=== PATIENT | female | born 1945 | race Hispanic/Latino ===

== ENCOUNTER 2019-05-17 12:47 | Emergency (ER) | payer OTHER, MEDICARE ==
--- OUTSIDE RECORDS SUMMARY | 2019-05-17 12:49 | XMS REPORT ---
:1945 [facility] Address [address] Jessica [address] [place] [id number] Care Team Providers Name Role Phone Unavailable Unavailable Unavailable Problems This patient has no known problems. Allergies, Adverse Reactions, Alerts This patient has no known allergies or adverse reactions. Medications This patient has no known medications.
--- OUTSIDE RECORDS SUMMARY | 2019-05-17 12:50 | XMS REPORT | Summary of Care ---
:1945 Author Organization [facility] Address [address] [place] [id number] Care Team Providers Name Role Phone Miracle Erickson Primary Care Provider Reason for Visit Auth/Cert Status Reason Specialty Diagnoses / Procedures Referred By Contact Referred To Contact Surgery Diagnoses Personal history of colonic polyps personal history of adenomatous colon polyps Adc Pre/Pacu/Post Procedures OK COLONOSCOPY W/BIOPSY SINGLE/MULTIPLE COLONOSCOPY [address] [facility] [place] [address] Encounter Details Date Type Department Care Team Description 02/07/2019 Hospital Encounter [facility] Amaury Kc MD [address] [facility] [address] [facility] [place] [address] [id number] [place] [id number] Allergies Active Allergy Reactions Severity Noted Date Comments Dye Unknown - See comments 02/01/2019 Iodine Unknown - See comments 02/01/2019 documented as of this encounter (statuses as of 02/07/2019) Medications Medication Sig Dispensed Refills Start Date End Date Status ALPRAZolam 0.25 mg Take 0.25 mg 0 Active tablet by mouth daily. ferrous sulfate 325 Take 325 mg 0 Active mg (65 mg iron) EC by mouth tablet daily. magnesium oxide 400 Take 400 mg 0 Active mg magnesium by mouth. capsule omeprazole 20 mg Take 20 mg by 0 Active capsule mouth daily. pravastatin 10 mg Take 10 mg by 0 Active tablet mouth at bedtime. primidone 50 mg Take 50 mg by 0 Active tablet mouth before meals and at bedtime. rOPINIRole 0.25 mg Take 0.25 mg 0 Active tablet by mouth 3 (three) times daily. tramadol-acetaminop Take 1 tablet 0 Active hen 37.5-325 mg per by mouth tablet every 6 (six) hours as needed for Pain. rivaroxaban Take 20 mg by 0 Active (XARELTO) 20 mg mouth daily. tablet metoprolol Take 50 mg by 0 12/28/2018 Active succinate XL 50 mg mouth 2 (two) 24 hr tablet times daily. METOPROLOL Take 50 mg by 0 02/01/2019 Discontinued SUCCINATE ORAL mouth 2 (two) times daily. documented as of this encounter (statuses as of 02/07/2019) Active Problems No known active problemsdocumented as of this encounter (statuses as of 2018) Social History Tobacco Use Types Packs/Day Years Used Date Never Smoker Smokeless Tobacco: Never Used Alcohol Use Drinks/Week oz/Week Comments Yes 2 Cans of beer 1.2 twice a week Alcohol Habits Answer Date Recorded How often do you have a drink containing alcohol? Monthly or less 02/01/2019 How many drinks containing alcohol do you have on a 1 or 2 02/01/2019 typical day when you are drinking? How often do you have six or more drinks on one Not asked occasion? Sex Assigned at Date Recorded Not on file Job Start Date Occupation Industry Not on file Not on file Not on file Travel History Travel Start Travel End No recent travel history available. documented as of this encounter Last Filed Vital Signs Vital Sign Reading Time Taken Comments Blood Pressure 131/57 02/07/2019 9:21 AM CDT Pulse 69 02/07/2019 9:15 AM CDT Temperature 36.7 C (98 F) 02/07/2019 9:14 AM CDT Respiratory Rate 20 02/07/2019 9:15 AM CDT Oxygen Saturation 97% 02/07/2019 9:21 AM CDT Inhaled Oxygen Concentration - - Weight 72.6 kg (160 lb) 02/01/2019 2:00 PM CDT Height 157.5 cm (5' 2") 02/01/2019 2:00 PM CDT Body Mass Index 29.26 02/01/2019 2:00 PM CDT documented in this encounter Discharge Instructions Ale Pulido RN - 02/07/2019 Patient Discharge Instructions Discharge date: 02/07/2019 Procedure(s): Procedure(s): COLONOSCOPY No discharge procedures on file. Follow instructions as indicated below: 1. The medication that was used will be acting in your system for the next 24 hours, so you might feel a little drowsy, with impaired judgment and or motor function. This feeling should go wear off. Because the medication is still in your system for the next 24 hours you SHOULD NOT: Drive a car, operate machinery or power tool. Drink any alcohol beverages (including beer or wine). Make any important decisions or sign any legal documents. 2. You should rest the remainder of the day and not engage in any physical activity. Move slowly today. After lying down, sit on the edge of the bed for a moment before standing. YOU ARE RESPONSIBLEFOR HAVING SOMEONE AT HOME WITH YOU DURING THE AFTERNOON AND NIGHT IMMEDIATELY FOLLOWING YOUR SURGERY. Patient should cough and deep breathe every 2-4 hours while awake to avoid respiratory complications. 4. Lifting: "No medical restrictions 5. Weight: In general, sudden weight gains or losses should be reported to your provider. Cardiac patients should weigh daily and notify their provider for a weight gain of 3 pounds per day or 5 pounds per week. 6. Tobacco Avoidance: Follow recommendations below 7. Because the medications used could procedure some residual nausea and vomiting after you go home,you should eat lightly today, starting with clear liquids (broth, soft drinks, apple juice, jello) and toast or crackers, progressing to bland solid foods and then to your normal diet as tolerated, unless otherwise stated by your surgeon. If you get sick, wait a couple of hours and then begin to eat. After 24 hours the nausea should be gone. 8. You may experience some pain and your physician will advise you on what to take for discomfort. This should be taken as directed. If the pain is not relieved, contact your physician. You may alsohave a sore throat from the airway that was in place. You may uses lozenges, throat spray (such as Chloraseptic), or warm salt water gargles for symptomatic relief. 9. If you feel warm, take your temperature. If it is 101 degrees or above call your physician. 10. If you are unable to urinate within five hours after your procedure, call your physician. 11. The type of surgery performed will determine how much bleeding (if any) to expect. Normally, some spotting might occur. If your dressing pad becomes saturated, notify your physician. Elevate surgical site, if applicable, to reduced swelling and pain. 12. Wound/dressing care: none Tips on preventing a surgical site infection.. Dont smoke. It is best to quit at least 30 days before surgery, but quitting after surgery is also helpful. If you are diabetic, keep your blood sugar well controlled. WASH YOUR HANDS. Keep your wound clean and remember to wash your hands before and after contact with the area. All health care workers should also wash their hands or use an alcohol based hand rub prior to examining you. If antibiotics are prescribed, take them as directed. Finish the entire course of antibiotics. Call your doctor if you have signs of infection: ? Increased tenderness at the surgical site ? Red streaks or increased redness of the area ? Bad-smelling discharge from the incision ? Fever of 101F or higher ? General tired feeling that doesnt improve 13. Other discharge instructions: {DC IP DISCHARGE INSTRUCTIONS OTHER:35374} 14. Special Instructions: COLONOSCOPY DO NOT DRIVE or operate machinery the rest of the day. Mild abdominal discomfort may result from the procedure, but this should disappear within several hours. Notify your physician/nurse if you have persistent pain for more than 6 hours, tenderness or abdominal distention. Belching or passing gas per rectum frequently occurs during the first few hours after the examination. Walking will often help relieve distension or gas pains. Notify you physician/nurse if your heart rate becomes unusually rapid, if you experience, shortness of breath, dizziness, fever greater than 101, or if you cough or vomit blood or experience chest painor have any concerns at all. You may have minor bleeding. If this continues for more than 24 hours or increases in intensity, notify your physician/nurse. Tenderness may occur in the vein where medication was given. Notify your physician/ nurse should fever, swelling redness of the arm/hand, or pain in the armpit occur. Many patients feel quite tired following these procedures and need to rest and recuperate for several hours. Continue to take all medications as prescribed until your follow up appointment. Ask nurse for assistance in ambulating. If you cannot reach your physician for problems go to the nearest emergency center. Take Home Medications These are medications ordered for you by your healthcare provider. Do not take any other medications or supplements unless advised by your healthcare provider. Current Discharge Medication List STOP taking these medications ALPRAZolam 0.25 mg tablet Comments: Reason for Stopping: ferrous sulfate 325 mg (65 mg iron) EC tablet Comments: Reason for Stopping: magnesium oxide 400 mg magnesium capsule Comments: Reason for Stopping: metoprolol succinate XL 50 mg 24 hr tablet Comments: Reason for Stopping: omeprazole 20 mg capsule Comments: Reason for Stopping: pravastatin 10 mg tablet Comments: Reason for Stopping: primidone 50 mg tablet Comments: Reason for Stopping: rivaroxaban (XARELTO) 20 mg tablet Comments: Reason for Stopping: rOPINIRole 0.25 mg tablet Comments: Reason for Stopping: tramadol-acetaminophen 37.5-325 mg per tablet Comments: Reason for Stopping: Follow-up appointments: Your follow up appointment with your surgeon has been made. Appointment Date: , Appointment Time . For questions regarding follow-up instructions call the [facility]aiser Hotline at or If you experience any of the following symptoms , please follow up with . For worsening symptoms/changing condition/problems or questions: Non-emergency/urgent: Call the Tour Raiser Hotline at or or Emergency: Go to the closest emergency room or call [phone] Translated by Date Time If you receive the patient satisfaction survey by mail please complete and return and let us know how we are doing. TOBACCO AVOIDANCE Exposure to tobacco either from smoking or from second hand (environmental) smoke or smokeless tobacco (snuff) is damaging to your health. This information is to encourage everyone to avoid tobacco exposure. It is recommended that you: ? If you smoke or use smokeless tobacco, we encourage you to quit. ? If you have already quit smoking, continue your good work! ? If you do not smoke or use smokeless tobacco, do not start. ? Avoid secondhand smoke. Additional Resources You may want to contact these organizations for further information on smoking and how to quit. [employer] [employer], http://www.lungusa.org/stop-smoking/ [employer] [employer], http://www.cancer.org/Healthy/StayAwayfromTobacco/index [employer], http://www.heart.org/HEARTORG/GettingHealthy/ QuitSmoking/Quit-Smoking_[facility]_001085_SubHomePage.jsp documented in this encounter Plan of Treatment Name Type Priority Associated Diagnoses Order Schedule EKG-12 LEAD ROUTINE HEART STATION Routine ONCE for 1 Occurrences starting 02/07/2019 until 02/07/2019 Health Maintenance Due Date Last Done Comments DTaP,Tdap,and Td Vaccines (1 - Tdap) 1962 MAMMOGRAM 1983 COLONOSCOPY 1993 Zoster Recombinant Vaccine (SHINGRIX) (1 of 2) 1993 Medicare Wellness Visit 2008 Osteoporosis Screening 2008 PNEUMOCOCCAL VACCINES 65+ (1 of 2 - PCV13) 2008 INFLUENZA VACCINE 03/04/2019 documented as of this encounter Procedures Procedure Name Priority Date/Time Associated Diagnosis Comments COLONOSCOPY (ENDO) Routine 02/07/2019 8:29 AM CDT EKG-12 LEAD Routine 02/07/2019 7:10 AM CDT EKG-12 LEAD Routine 02/07/2019 7:09 AM CDT POCT GLUCOSE(AGE Routine 02/07/2019 6:47 AM >30DAYS) CDT documented in this encounter Results POCT Glucose (02/07/2019 6:47 AM CDT) POCT Glu (age>30days) 70 - 110 mg/dL Specimen Blood - CAPILLARY documented in this encounter Administered Medications Medication Order MAR Action Action Date Dose Rate Site simethicone (GAS RELIEF) 40 Given 02/07/2019 8:45 AM CDT 0.6 mL mg/0.6 mL drops PRN, Starting Tue02/07/19 at 0845, Until Discontinued, Routine, Intra-op water for irrigation irrigation solution Given 02/07/2019 8:46 AM CDT 1,000 mL PRN, Starting Tue02/07/19 at 0846, Until Discontinued, Routine, Intra-op Medication Order MAR Action Action Date Dose Rate Site lactated ringers IV infusion New Bag 02/07/2019 6:56 AM CDT 1,000 mL 20 mL /hr 1,000 mL at 20 mL/hr, 1,000 mL, IV Infusion, ONCE, 1 dose, Tue02/07/19 at 0645, Routine, DSU Pre-op documented in this encounter Insurance Payer Benefit Plan / Subscriber ID Effective Phone Address Type Group Dates MEDICARE MEDICARE PART xxxxxxxxxxx 2008-Pr [phone] [address] Medicare A & B esent [id number] [place] [address] [facility] [id number] 2018-Pre [address] Medicare HEALTHCARE HEALTHCARE sent [id number] Supplement MEDICARE [place] SUPPLEMENT [place] [id number] ([place]) [place] [address] documented as of this encounter
--- OUTSIDE RECORDS SUMMARY | 2019-05-17 12:50 | XMS REPORT | Summary of Care ---
:1945 Author Organization [facility] Address [address] [place] [address] Care Team Providers Name Role Phone Miracle Erickson Primary Care Provider Encounter Details Date Type Department Care Team Description 02/07/2019 Orders Only [facility] Doctor Unassigned, No [address] [facility] [place] [address] [address] [place] [address] Allergies Active Allergy Reactions Severity Noted Date Comments Dye Unknown - See comments 02/01/2019 Iodine Unknown - See comments 02/01/2019 documented as of this encounter (statuses as of 02/07/2019) Medications Medication Sig Dispensed Refills Start Date End Date Status ALPRAZolam 0.25 mg Take 0.25 mg by 0 Active tablet mouth daily. ferrous sulfate 325 mg Take 325 mg by 0 Active (65 mg iron) EC tablet mouth daily. magnesium oxide 400 mg Take 400 mg by 0 Active magnesium capsule mouth. omeprazole 20 mg Take 20 mg by 0 Active capsule mouth daily. pravastatin 10 mg Take 10 mg by 0 Active tablet mouth at bedtime. primidone 50 mg tablet Take 50 mg by 0 Active mouth before meals and at bedtime. rOPINIRole 0.25 mg Take 0.25 mg by 0 Active tablet mouth 3 (three) times daily. tramadol-acetaminophen Take 1 tablet by 0 Active 37.5-325 mg per tablet mouth every 6 (six) hours as needed for Pain. rivaroxaban (XARELTO) Take 20 mg by 0 Active 20 mg tablet mouth daily. metoprolol succinate XL Take 50 mg by 0 12/28/2018 Active 50 mg 24 hr tablet mouth 2 (two) times daily. documented as [...] of this encounter Last Filed Vital Signs Not on filedocumented in this encounter Plan of Treatment Health Maintenance Due Date Last Done Comments DTaP,Tdap,and Td Vaccines (1 - Tdap) 1962 MAMMOGRAM 1983 COLONOSCOPY 1993 Zoster Recombinant Vaccine (SHINGRIX) (1 of 2) 1993 Medicare Wellness Visit 2008 Osteoporosis Screening 2008 PNEUMOCOCCAL VACCINES 65+ (1 of 2 - PCV13) 2008 INFLUENZA VACCINE 03/04/2019 documented as of this encounter Procedures Procedure Name Priority Date/Time Associated Diagnosis Comments DAY SURGERY - ADC Routine 02/07/2019 12:01 AM CDT documented in this encounter Results Not on filedocumented in this encounter Insurance Payer Benefit Plan / Subscriber ID Effective Phone Address Type Group Dates MEDICARE MEDICARE PART xxxxxxxxxxx 2008-Pr [phone] [address] Medicare A & B esent [id number] [place] [address] [facility] [id number] 2018-Pre [address] Medicare HEALTHCARE HEALTHCARE sent [id number] Supplement MEDICARE [place] SUPPLEMENT [place] [id number] documented as of this encounter
[2019-05-17] MEDS ORDERED: DICYCLOMINE HCL 10 MG CAP ONE (14:12)
[2019-05-17] MEDS ORDERED: FAMOTIDINE 20 MG/2 ML VIAL IV ONE (14:12)
[2019-05-17] MEDS ORDERED: ONDANSETRON 4 MG/2 ML VIAL ONE (14:12)
[2019-05-17] MEDS ORDERED: NA CHLORIDE 0.9% 500 ML ONE (14:12)
[2019-05-17 14:22] LABS: Absolute Lymphocytes (CBC) 1.6 K/uL (0.7-4.9); Basophils % 0.7 % (0-1.3); Hematocrit 43.6 % (36.0-45.0); Lymphocytes % 19.4 % (15.3-44.8); MPV 7.7 fL (7.6-11.3); RBC Red Blood Cell Count 4.53 M/uL (3.86-4.86)
--- NOTE | 2019-05-17 14:37 | RAD REPORT ---
EXAM DESCRIPTION: CT - Abdomen Pelvis Wo Contrast - 05/17/2019 2:13 pm CLINICAL HISTORY: Abdominal pain COMPARISON: 2013 TECHNIQUE: Computed axial tomography of the abdomen and pelvis was obtained. IV and oral contrast we re not requested. All CT scans are performed using dose optimization technique as appropriate and may include automated exposure control or mA/KV adjustment according to patient size. FINDINGS: The evaluation of solid organs, vessels, appendix and bowel is limited secondary to the l ack of contrast administration. The liver, spleen, pancreas, and adrenals appear grossly normal. Right renal cysts have increased in size. Largest measures 3 point centimeters. Left kidney appears g rossly normal Borderline enlargement of the appendix. It has increased in caliber compared to the prior CAT scan. N o stranding is seen within the adjacent fat. Colonic diverticulosis. Minimal stranding adjacent to sigmoid colon. Vascular calcifications 3.5 centimeter left adnexal cyst. No ascites IMPRESSION: Minimal sigmoid diverticulitis Borderline enlargement of the appendix. Given that there is no stranding within the adjacent fat this probably is not significant. However if the patient has clinical symptoms to suggest an appendicitis then CT scan with oral contrast and opacification of the terminal ileum/cecum would be recommended 3.5 centimeter left adnexal cyst probably benign. Follow-up ultrasound in 6 months recommended to ass ess stability
[2019-05-17 14:51] LABS: Albumin 3.4 g/dL (3.4-5.0); Bilirubin Direct 0.2 mg/dL (0-0.2); Bilirubin Total 0.5 mg/dL (0.2-1.0); Potassium 3.4 mmol/L (3.5-5.1); Protein, Total 7.8 g/dL (6.4-8.2)
[2019-05-17] MEDS ORDERED: metroNIDAZOLE 500 MG TABLET ONE (15:19)
[2019-05-17] MEDS ORDERED: CIPROFLOXACIN HCL 500 MG TAB ONE (15:19)
--- NOTE | 2019-05-17 15:24 | ER ---
Nurse's Notes [facility] Name: Katiuska Chowdary Age: 74 yrs Sex: Female : 1945 Arrival Date: 05/17/2019 Time: 12:51 Bed 14 Private MD: Diagnosis: Abdominal and pelvic pain;Sigmoid diverticulitis Presentation: 05/17 13:05 Presenting complaint: Patient states: Abdominal cramping, diarrhea, nausea x approx 4 ph days, denies fever or urinary symptoms. Transition of care: patient was not received from another setting of care. Onset of symptoms was May 17, 2019. Risk Assessment: Do you want to hurt yourself or someone else? Patient reports no desire to harm self or others. Initial Sepsis Screen: Does the patient meet any 2 criteria? No. Patient's initial sepsis screen is negative. Does the patient have a suspected source of infection? No. Patient's initial sepsis screen is negative. Care prior to arrival: None. 13:05 Method Of Arrival: Ambulatory 13:05 Acuity: STEFAN 3 ph Historical: - Allergies: 13:08 Iodine; ph - PMHx: 13:08 Parkinsons; Arthritis; Hypertension; ph - PSHx: 13:08 Cholecystectomy; ph - Immunization history:: Adult Immunizations. - Social history:: Smoking status: Patient/guardian denies using tobacco. - Ebola Screening: : Patient negative for fever greater than or equal to 101.5 degrees Fahrenheit, and additional compatible Ebola Virus Disease symptoms Patient denies exposure to infectious person Patient denies travel to an Ebola-affected area in the 21 days before illness onset No symptoms or risks identified at this time. Screenin:30 Abuse screen: Denies threats or abuse. Denies injuries from another. Nutritional sg screening: No deficits noted. Tuberculosis screening: No symptoms or risk factors identified. Never had TB. Fall Risk None identified. Assessment: 13:30 General: Appears in no apparent distress. well groomed, well developed, well nourished, sg Behavior is calm, cooperative, appropriate for age. Pain: Complains of pain in suprapubic area and left lower quadrant Quality of pain is described as aching. Neuro: Level of Consciousness is awake, alert, obeys commands, Speech is normal, Facial symmetry appears normal. Cardiovascular: Patient's skin is warm and dry. Respiratory: Airway is patent Respiratory effort is even, unlabored, Respiratory pattern is regular, symmetrical. GI: Bowel sounds present X 4 quads. Reports lower abdominal pain, nausea. : No signs and/or symptoms were reported regarding the genitourinary system. EENT: No signs and/or symptoms were reported regarding the EENT system. Derm: Skin is pink, warm \T\ dry. Musculoskeletal: Circulation, motion, and sensation intact. Range of motion: intact in all extremities. 15:04 Reassessment: Patient appears in no apparent distress at this time. Patient and/or sg family updated on plan of care and expected duration. Pain level reassessed. Patient is alert, oriented x 3, equal unlabored respirations, skin warm/dry/pink. Vital Signs: 13:07 BP 155 / 87; Pulse 94; Resp 18; Temp 98.7; Pulse Ox 100% on R/A; Weight 72.57 kg; ph Height 5 ft. 2 in. (157.48 cm); Pain 5/10; 15:00 BP 140 / 77; Pulse 80; Resp 17; Pulse Ox 99% on R/A; sg 13:07 Body Mass Index 29.26 (72.57 kg, 157.48 cm) ph ED Course: 12:51 Patient arrived in ED. mr 13:07 Triage completed. ph 13:08 Arm band placed on Patient placed in waiting room, Patient notified of wait time. ph 13:23 Luis Enrique Funes MD is Attending Physician. kdr 13:30 Patient has correct armband on for positive identification. Placed in gown. Bed in low sg position. 13:30 No provider procedures requiring assistance completed. IV discontinued, intact, sg bleeding controlled, No redness/swelling at site. Pressure dressing applied. 13:33 Tonio Darby, RN is Primary Nurse. sg 14:12 Abdomen In Process Unspecified. EDMS Administered Medications: 14:30 Drug: Pepcid 20 mg Route: IVP; Site: left forearm; sg 15:16 Follow up: Response: No adverse reaction sg 14:30 Drug: Bentyl 20 mg Route: PO; sg 15:16 Follow up: Response: No adverse reaction sg 14:30 Drug: Zofran 4 mg Route: IVP; Site: left forearm; sg 15:16 Follow up: Response: No adverse reaction; Nausea is decreased sg 14:34 Drug: NS 0.9% 500 ml Route: IV; Rate: bolus; Site: left forearm; sg 15:22 Drug: Flagyl 500 mg Route: PO; sg 16:20 Follow up: Response: No adverse reaction sg 15:22 Drug: Cipro 500 mg Route: PO; sg 18:58 Follow up: Response: No adverse reaction sg Outcome: 15:24 Discharge ordered by . gill 15:30 Discharged to home ambulatory, with family. sg 15:30 Condition: good 15:30 Discharge instructions given to patient, Instructed on discharge instructions, follow up and referral plans. safety practices, Demonstrated understanding of instructions, follow-up care, Prescriptions given X 2. 15:33 Patient left the ED. em1 Signatures: Dispatcher [employer] Tonio Lombardi, RN RN Luis Enrique Bustamante MD MD kdr Rivera, Zack Blanton em1 Mary Cheema RN RN ph
--- NOTE | 2019-05-17 15:25 | EDPHYS ---
Physician Documentation [facility] Name: Katiuska Chowdary Age: 74 yrs Sex: Female : 1945 Arrival Date: 05/17/2019 Time: 12:51 Bed 14 Private MD: ED Physician Luis Enrique Funes HPI: 05/17 15:18 This 74 yrs old Female presents to ER via Ambulatory with complaints of kdr Abdominal Cramping, Nausea/Vomiting/Diarrhea. 15:18 The patient presents with abdominal pain in the upper abdomen, in the left lower kdr quadrant. Onset: The symptoms/episode began/occurred gradually, 1 week(s) ago. The symptoms do not radiate. Associated signs and symptoms: Pertinent positives: nausea, vomiting, and diarrhea, nausea and vomiting, diarrhea, Pertinent negatives: blood in stools, chest pain, headache, hematuria, vaginal discharge, vomiting blood. The symptoms are described as achy, crampy, intermittent, vague. Modifying factors: The symptoms are alleviated by nothing, the symptoms are aggravated by movement, touching the area. Severity of pain: At its worst the pain was mild in the emergency department the pain is unchanged. The patient has not experienced similar symptoms in the past. The patient has not recently seen a physician. Historical: - Allergies: 13:08 Iodine; ph - PMHx: 13:08 Parkinsons; Arthritis; Hypertension; ph - PSHx: 13:08 Cholecystectomy; ph - Immunization history:: Adult Immunizations. - Social history:: Smoking status: Patient/guardian denies using tobacco. - Ebola Screening: : Patient negative for fever greater than or equal to 101.5 degrees Fahrenheit, and additional compatible Ebola Virus Disease symptoms Patient denies exposure to infectious person Patient denies travel to an Ebola-affected area in the 21 days before illness onset No symptoms or risks identified at this time. ROS: 15:18 Constitutional: Negative for fever, chills, and weight loss, Eyes: Negative for injury, kdr pain, redness, and discharge, ENT: Negative for injury, pain, and discharge, Neck: Negative for injury, pain, and swelling, Cardiovascular: Negative for chest pain, palpitations, and edema, Respiratory: Negative for shortness of breath, cough, wheezing, and pleuritic chest pain, Back: Negative for injury and pain, : Negative for injury, bleeding, discharge, and swelling, MS/Extremity: Negative for injury and deformity, Skin: Negative for injury, rash, and discoloration, Neuro: Negative for headache, weakness, numbness, tingling, and seizure activity. Psych: Negative for depression, anxiety, suicide ideation, homicidal ideation, and hallucinations, Allergy/Immunology: Negative for hives, rash, and allergies, Endocrine: Negative for neck swelling, polydipsia, polyuria, polyphagia, and marked weight changes, Hematologic/Lymphatic: Negative for swollen nodes, abnormal bleeding, and unusual bruising. 15:18 Abdomen/GI: Positive for abdominal pain, nausea, vomiting, and diarrhea, Negative for abdominal distension, anorexia, dysphagia, hematemesis, black/tarry stool, rectal bleeding. Exam: 15:18 Constitutional: This is a well developed, well nourished patient who is awake, alert, kdr and in no acute distress. Head/Face: Normocephalic, atraumatic. Eyes: Pupils equal round and reactive to light, extra-ocular motions intact. Lids and lashes normal. Conjunctiva and sclera are non-icteric and not injected. Cornea within normal limits. Periorbital areas with no swelling, redness, or edema. Neck: Trachea midline, no thyromegaly or masses palpated, and no cervical lymphadenopathy. Supple, full range of motion without nuchal rigidity, or vertebral point tenderness. No Meningismus. Chest/axilla: Normal chest wall appearance and motion. Nontender with no deformity. No lesions are appreciated. Cardiovascular: Regular rate and rhythm with a normal S1 and S2. No gallops, murmurs, or rubs. Normal PMI, no JVD. No pulse deficits. Respiratory: Lungs have equal breath sounds bilaterally, clear to auscultation and percussion. No rales, rhonchi or wheezes noted. No increased work of breathing, no retractions or nasal flaring. Back: No spinal tenderness. No costovertebral tenderness. Full range of motion. Skin: Warm, dry with normal turgor. Normal color with no rashes, no lesions, and no evidence of cellulitis. MS/ Extremity: Pulses equal, no cyanosis. Neurovascular intact. Full, normal range of motion. Neuro: Awake and alert, GCS 15, oriented to person, place, time, and situation. Cranial nerves II-XII grossly intact. Motor strength 5/5 in all extremities. Sensory grossly intact. Cerebellar exam normal. Normal gait. Psych: Awake, alert, with orientation to person, place and time. Behavior, mood, and affect are within normal limits. 15:18 Abdomen/GI: Inspection: abdomen appears normal, obese Bowel sounds: active, diminished, in all quadrants, Palpation: soft, mild abdominal tenderness, in the right upper quadrant, left upper quadrant and left lower quadrant, rebound tenderness, is not appreciated, voluntary guarding, is not appreciated, involuntary guarding, is not appreciated, tenderness to percussion, is not appreciated. Vital Signs: 13:07 BP 155 / 87; Pulse 94; Resp 18; Temp 98.7; Pulse Ox 100% on R/A; Weight 72.57 kg; ph Height 5 ft. 2 in. (157.48 cm); Pain 5/10; 15:00 BP 140 / 77; Pulse 80; Resp 17; Pulse Ox 99% on R/A; sg 13:07 Body Mass Index 29.26 (72.57 kg, 157.48 cm) ph MDM: 15:18 Data reviewed: vital signs, nurses notes, lab test result(s), radiologic studies. kdr Counseling: I had a detailed discussion with the patient and/or guardian regarding: the historical points, exam findings, and any diagnostic results supporting the discharge/admit diagnosis, lab results, radiology results, the need for outpatient follow up. Special discussion: Based on the patient's Hx, exam, and Dx evaluation, there is no indication for emergent surgery or inpatient Tx. It is understood by the patient/guardian that if the Sx's persist or worsen they need to return immediately for re-evaluation. I discussed with the patient/guardian in detail that at this point there is no indication for admission to the hospital. It is understood, however, that if the symptoms persist or worsen the patient needs to return immediately for re-evaluation. 15:24 Patient medically screened. [facility] 05/17 13:24 Order name: Basic Metabolic Panel; Complete Time: 15:00 kdr 05/17 13:24 Order name: CBC with Diff; Complete Time: 15:00 kdr 05/17 13:24 Order name: Creatinine for Radiology; Complete Time: 15:00 kdr 05/17 13:24 Order name: Hepatic Function; Complete Time: 15:00 kdr 05/17 13:24 Order name: Lipase; Complete Time: 15:00 kdr 05/17 14:06 Order name: Abdomen ; Complete Time: 15:00 EDMS 05/17 13:24 Order name: IV Saline Lock; Complete Time: 14:50 kdr 05/17 13:24 Order name: Labs collected and sent; Complete Time: 14:50 kdr Administered Medications: 14:30 Drug: Pepcid 20 mg Route: IVP; Site: left forearm; sg 15:16 Follow up: Response: No adverse reaction sg 14:30 Drug: Bentyl 20 mg Route: PO; sg 15:16 Follow up: Response: No adverse reaction sg 14:30 Drug: Zofran 4 mg Route: IVP; Site: left forearm; sg 15:16 Follow up: Response: No adverse reaction; Nausea is decreased sg 14:34 Drug: NS 0.9% 500 ml Route: IV; Rate: bolus; Site: left forearm; sg 15:22 Drug: Flagyl 500 mg Route: PO; sg 16:20 Follow up: Response: No adverse reaction sg 15:22 Drug: Cipro 500 mg Route: PO; sg 18:58 Follow up: Response: No adverse reaction sg Disposition: 05/17/19 15:24 Discharged to Home. Impression: Abdominal and pelvic pain, Sigmoid diverticulitis. - Condition is Stable. - Discharge Instructions: Nausea and Vomiting, Adult, [id number], Abdominal Pain, Adult, [id number]. - Prescriptions for Bentyl 20 mg Oral Tablet - take 1 tablet by ORAL route every 6 hours As needed; 20 tablet. Cipro 500 mg Oral Tablet - take 1 tablet by ORAL route every 12 hours for 10 days; 20 tablet. Flagyl 500 mg Oral Tablet - take 1 tablet by ORAL route every 6 hours for 10 days; 40 tablet. Zofran 4 mg Oral Tablet - take 1 tablet by ORAL route every 4-6 hours As needed; 12 tablet. Tramadol 50 mg Oral Tablet - take 1 tablet by ORAL route every 8 hours as needed; 12 tablet. - Medication Reconciliation Form, Thank You Letter, Antibiotic Education, Prescription Opioid Use form. - Follow up: Private Physician; When: 2 - 3 days; Reason: If symptoms return, Further diagnostic work-up, Recheck today's complaints, Continuance of care, Re-evaluation by your physician. - Problem is new. - Symptoms have improved. Signatures: Dispatcher [employer] [facility] Tonio Darby, RN RN sg Luis Enrique Funes MD MD [facility] John, Zack em1 Mary Cheema, RN RN ph Corrections: (The following items were deleted from the chart) 14:05 13:56 Abdomen Pelvis W Con+CT.RAD.BRZ ordered. [facility] EDGA 14:06 14:05 CT-ABD ordered. [facility] EDGA 15:33 15:24 05/17/2019 15:24 Discharged to Home. Impression: Abdominal and pelvic pain; em1 Sigmoid diverticulitis. Condition is Stable. Forms are Medication Reconciliation Form, Thank You Letter, Antibiotic Education, Prescription Opioid Use. Follow up: Private Physician; When: 2 - 3 days; Reason: If symptoms return, Further diagnostic work-up, Recheck today's complaints, Continuance of care, Re-evaluation by your physician. Problem is new. Symptoms have improved. kdr
[2019-05-17 17:33] VITALS: BP 140/77; O2SAT 99
[2019-05-17 17:35] VITALS: TEMP 98.7
== END 2019-05-17 15:33 | disposition home or self-care (01) ==
LOC: ER 12:47
DX: K57.32 Diverticulitis of large intestine without perforation or abscess without bleeding (principal); I10 Essential (primary) hypertension; G20 Parkinson's disease; Z91.048 Other nonmedicinal substance allergy status
CPT/HCPCS: 85025; 80048; 36415; 80076; 83690; 74176; 96375; 96374; 99283; J7040; J2405

== ENCOUNTER 2023-12-17 21:16 | Emergency (ER) | payer OTHER, MEDICARE ==
--- NOTE | 2023-12-17 21:36 | EDPHYS ---
Physician Documentation [facility] Name: Katiuska Chowdary Age: 78 yrs Sex: Female : 1945 Arrival Date: 12/17/2023 Time: 21:16 Bed IW1 Private MD: ED Physician Deejay Stauffer HPI: 12/16 23:47 This 78 yrs old Female presents to ER via Ambulatory with complaints of Rash. kb 23:47 Pt is an 78 year old female who presents for rash to bilateral forearms and neck after kb coming into contact with poison maría. Denies shortness of breath. Reports itching. States she has had this multiple times in the past due to poison maría. Historical: - Allergies: 21:55 Iodine; lg3 - Home Meds: 21:55 Unable to obtain [Active]; lg3 - PMHx: 21:55 Arthritis; Hypertension; Parkinsons; lg3 - PSHx: 21:55 Cholecystectomy; lg3 - Immunization history:: Adult Immunizations up to date. - Infectious Disease History:: Denies. - Social history:: Smoking status: Patient denies any tobacco usage or history of. Patient uses alcohol, occasionally. ROS: 23:26 Constitutional: As per HPI kb Exam: 23:26 Constitutional: This is a well developed, well nourished patient who is awake, alert, kb and in no acute distress. Head/Face: Normocephalic, atraumatic. ENT: Moist Mucous membranes Cardiovascular: Regular rate Respiratory: Respirations even and unlabored. No increased work of breathing. Talking in full sentences MS/ Extremity: Pulses equal, no cyanosis. Neurovascular intact. Full, normal range of motion. Neuro: Awake and alert, GCS 15, oriented to person, place, time, and situation. Moves all extremities. Normal gait. 23:26 Skin: rash can be described as erythematous, consistent with contact dermatitis, on the right arm, left arm and neck, Vital Signs: 21:54 BP 138 / 56; Pulse 66; Resp 17 S; Temp 98.4(O); Pulse Ox 100% on R/A; Weight 73.03 kg lg3 (R); Height 5 ft. 3 in. (R); 21:54 Body Mass Index 28.52 (73.03 kg, 160.02 cm) lg3 MDM: 21:17 Patient medically screened. kb 23:28 Data reviewed: vital signs, nurses notes. kb 23:47 Differential diagnosis: impetigo, allergic reaction, parasite infection, contact kb dermatitis. Counseling: I had a detailed discussion with the patient and/or guardian regarding the historical points, exam findings, and any diagnostic results supporting the discharge/admit diagnosis, the need for outpatient follow up, a family practitioner, to return to the emergency department if symptoms worsen or persist or if there are any questions or concerns that arise at home. Administered Medications: 21:58 Drug: Dexamethasone IM 10 mg IM once Route: IM; Site: left deltoid; lg3 21:58 Follow up: Response: No adverse reaction lg3 21:58 Drug: Famotidine PO 20 mg PO once Route: PO; lg3 21:58 Follow up: Response: No adverse reaction lg3 Disposition Summary: 12/17/23 21:35 Discharge Ordered Notes: Location: Home kb Condition: Stable kb Diagnosis - Allergic contact dermatitis due to plants, except food kb Followup: kb - With: Emergency Department - When: As needed - Reason: Worsening of condition Followup: kb - With: Private Physician - When: 2 - 3 days - Reason: Recheck today's complaints, Continuance of care, Re-evaluation by your physician Discharge Instructions: - Discharge Summary Sheet kb - Poison María Dermatitis, [id number] kb Forms: - Medication Reconciliation Form kb - Antibiotic Education kb - Prescription Opioid Use kb - Patient Portal Instructions kb - Leadership Thank You Letter kb Prescriptions: - Pepcid 20 mg Oral Tablet - take 1 tablet ORAL route every 12 hours for 5 days; 10 tablet; Refills: 0, kb Product Selection Permitted - Prednisone 20 mg Oral Tablet - take 1 tablet ORAL route once daily for 5 days; 5 tablet; Refills: 0, Product kb Selection Permitted Signatures: Erna Malik, ANGELICA RAMESH-Francie Anderson, RN RN lg3
[2023-12-17] MEDS ORDERED: dexAMETHasone 10 MG/ML VIAL ONE (21:49)
[2023-12-17] MEDS ORDERED: FAMOTIDINE 20 MG TAB ONE (21:49)
--- NOTE | 2023-12-17 21:59 | ER ---
Nurse's Notes [facility] [place], [place] Name: Katiuska Chowdary Age: 78 yrs Sex: Female : 1945 Arrival Date: 12/17/2023 Time: 21:16 Bed IW1 Private MD: Diagnosis: Allergic contact dermatitis due to plants, except food Presentation: 12/16 21:54 Chief complaint: Patient states: poison theodore to both arms and neck. Coronavirus screen: lg3 Client denies travel out of the [place] in the last 14 days. At this time, the client does not indicate any symptoms associated with coronavirus-19. Ebola Screen: No symptoms or risks identified at this time. Initial Sepsis Screen: Does the patient meet any 2 criteria? No. Patient's initial sepsis screen is negative. Does the patient have a suspected source of infection? No. Patient's initial sepsis screen is negative. Risk Assessment: Do you want to hurt yourself or someone else? Patient reports no desire to harm self or others. Onset of symptoms was December 17, 2023. 21:54 Method Of Arrival: Ambulatory 3 21:54 Acuity: STEFAN 4 lg3 Triage Assessment: 21:55 General: Appears in no apparent distress. comfortable, Behavior is calm, cooperative. lg3 Pain: Denies pain. EENT: No deficits noted. No signs and/or symptoms were reported regarding the EENT system. Neuro: No deficits noted. Aggarwal Agitation-Sedation Scale (RASS): 0 - Alert and Calm Level of Consciousness is awake, alert, obeys commands, Oriented to person, place, time, situation. Cardiovascular: No deficits noted. Denies chest pain, shortness of breath, Capillary refill < 3 seconds Clubbing of nail beds is absent JVD is absent Patient's skin is warm and dry. Respiratory: No deficits noted. Airway is patent Respiratory effort is even, unlabored, Respiratory pattern is regular, symmetrical, Breath sounds are clear bilaterally. GI: No deficits noted. No signs and/or symptoms were reported involving the gastrointestinal system. : No deficits noted. No signs and/or symptoms were reported regarding the genitourinary system. Derm: Skin is intact, is healthy with good turgor, Skin is dry, Skin is normal, Skin temperature is warm Rash noted that is itchy, on right arm, left arm and neck. Musculoskeletal: No deficits noted. No signs and/or symptoms reported regarding the musculoskeletal system. Circulation, motion, and sensation intact. Range of motion: intact in all extremities. Historical: - Allergies: 21:55 Iodine; lg3 - Home Meds: 21:55 Unable to obtain [Active]; lg3 - PMHx: 21:55 Arthritis; Hypertension; Parkinsons; lg3 - PSHx: 21:55 Cholecystectomy; lg3 - Immunization history:: Adult Immunizations up to date. - Infectious Disease History:: Denies. - Social history:: Smoking status: Patient denies any tobacco usage or history of. Patient uses alcohol, occasionally. Screenin:57 [facility] ED Fall Risk Assessment (Adult) History of falling in the last 3 months, lg3 including since admission No falls in past 3 months (0 pts) Confusion or Disorientation No (0 pts) Intoxicated or Sedated No (0 pts) Impaired Gait No (0 pts) Mobility Assist Device Used No (0 pt) Altered Elimination No (0 pt) Score/Fall Risk Level 0 - 2 = Low Risk Oriented to surroundings, Maintained a safe environment, Educated pt \T\ family on fall prevention, incl call for assistance when getting out of bed, Assessed \T\ reinforced patient's understanding of fall precautions. Abuse screen: Denies threats or abuse. Denies injuries from another. Nutritional screening: No deficits noted. Tuberculosis screening: No symptoms or risk factors identified. Assessment: 21:57 General: see triage assessment. lg3 Vital Signs: 21:54 BP 138 / 56; Pulse 66; Resp 17 S; Temp 98.4(O); Pulse Ox 100% on R/A; Weight 73.03 kg lg3 (R); Height 5 ft. 3 in. (R); 21:54 Body Mass Index 28.52 (73.03 kg, 160.02 cm) lg3 ED Course: 21:17 Patient arrived in ED. jj6 21:17 [facility]. kb 21:17 Deejay Stauffer MD is Attending Physician. kb 21:54 Francie Santos RN is Primary Nurse. lg3 21:55 Triage completed. lg3 21:55 Arm band placed on right wrist. lg3 21:57 Patient has correct armband on for positive identification. lg3 21:57 No provider procedures requiring assistance completed. Patient did not have IV access lg3 during this emergency room visit. Administered Medications: 21:58 Drug: Dexamethasone IM 10 mg IM once Route: IM; Site: left deltoid; lg3 21:58 Follow up: Response: No adverse reaction lg3 21:58 Drug: Famotidine PO 20 mg PO once Route: PO; lg3 21:58 Follow up: Response: No adverse reaction lg3 Medication: 21:57 VIS not applicable for this client. lg3 Outcome: 21:35 Discharge ordered by . nadine 21:58 Discharged to home ambulatory, lg3 21:58 Condition: stable 21:58 Discharge instructions given to patient, Instructed on discharge instructions, follow up and referral plans. medication usage, Demonstrated understanding of instructions, follow-up care, medications, Prescriptions given X 2, 21:59 Patient left the ED. lg3 Signatures: Erna Malik, ANGELICA RAMESH-Francie Anderson RN RN lg3 Kalyani Means [id number]
[2023-12-17 22:20] VITALS: BP 138/56; TEMP 98.4; O2SAT 100
== END 2023-12-17 21:59 | disposition home or self-care (01) ==
LOC: ER 21:16
DX: L23.7 Allergic contact dermatitis due to plants, except food (principal)
CPT/HCPCS: 96372; 99284; J1100